=== PATIENT | male | born 1950 | race Caucasian/White ===

== ENCOUNTER 2018-04-12 09:58 | Emergency (ER) | payer MEDICARE ==
[2018-04-12] MEDS ORDERED: Acetaminophen/Codeine 30-300mg Tablet ONE (10:14)
--- NOTE | 2018-04-12 17:18 | RAD ---
CHEST 2 VIEWS: Date: 04/12/18 The heart is normal in size. The mediastinum appears normal and the trachea is midline. There is no m ediastinal widening. Lungs are fully inflated and clear. There are no effusions. No fractures visible . There is some very slight wedging of a vertebra near the thoracolumbar junction. I doubt that it is acute. Some degenerative changes are seen in the spine. A sclerotic area in one of the mid thoracic vertebra may just be a bone island, but I doubt its overall significance. There is a chance this coul d be something in the lung overlapping the vertebra, however, I can find no evidence of that on the P A film. IMPRESSION: No acute traumatic findings. POS: HOME
--- NOTE | 2018-04-12 17:19 | RAD ---
RIGHT RIBS: Date: 04/12/18 There is a small, nondisplaced fracture through the right 9th rib posteriorly. There is no associated pneumothorax or significant pleural effusion. If there is any fluid, it is minimal. The right lung i s clear. The sclerotic area noted on the lateral view and the vertebra on the chest film appears to b e in T8 and is probably of no significance. IMPRESSION: Nondisplaced fracture of the right 9th rib posteriorly. POS: HOME
== END 2018-04-12 10:43 | disposition home or self-care (01) ==
LOC: BURERS 09:58
DX: S20.221A Contusion of right back wall of thorax, initial encounter (principal); I10 Essential (primary) hypertension; Z79.899 Other long term (current) drug therapy; W22.8XXA Striking against or struck by other objects, initial encounter
CPT/HCPCS: 71046